=== PATIENT | male | born 1945 | race Hispanic/Latino ===

== ENCOUNTER 2023-12-22 10:06 | Emergency (ER) | payer MEDICARE ==
[~2023-12-22] VITALS: Ht 160 cm; Wt 104.3 kg
[2023-12-22 10:20] VITALS: O2SAT 98
[2023-12-22] MEDS ORDERED: SODIUM CHLORIDE 0.9% 500ML 500 ML IV STA (10:27)
[2023-12-22] MEDS ORDERED: AMOX TR-K CLV1 EAC2 PO (11:45)
[2023-12-22] MEDS ORDERED: DOXYCYCLINE HY100 MG PO (11:45)
== END 2023-12-22 12:11 | disposition home or self-care (01) ==
LOC: ER 10:14
DX: L03.116 Cellulitis of left lower limb (principal); I10 Essential (primary) hypertension; E11.9 Type 2 diabetes mellitus without complications; E78.5 Hyperlipidemia, unspecified
CPT/HCPCS: 93971; 99284